=== PATIENT | female | born 1990 ===

== ENCOUNTER 2020-02-06 14:18 | Emergency (ER) | payer SELFPAY ==
[~2020-02-06] VITALS: Ht 154.9 cm; Wt 83.0 kg
[2020-02-06 14:27] VITALS: BP 118/77; TEMP 98.1
[2020-02-06 14:45] LABS: COLLECTION METHOD CLEAN CATCH
[2020-02-06 14:51] LABS: BASO % 0.3 % (0.0-2.0); EOS # 0.2 (0.0-0.7); EOS % 2.2 % (0-4.0); GRAN % 71.9 % (42.2-75.2); HEMOGLOBIN 12.8 g/dl (12.5-16.0); LYMPH # 2.2 (1.2-3.4); LYMPH % 19.9 % (20.0-51.0); MEAN CELL VOLUME 88 fl (80.0-100.0); MEAN CORPUSCULAR HEMOGLOBIN 31 pg (27.0-31.0); MEAN CORPUSCULAR HGB CONC 35 g/dl (33.0-37.0); MEAN PLATELET VOLUME 9.8 fl (7.4-10.4); MONO # 0.6 (0.1-0.6); MONO % 5.4 % (1.7-9.3); PLATELET COUNT 260 K/mm3 (130-400); RED BLOOD COUNT 4.16 M/mm3 (4.10-5.30); REDCELL DISTRIBUTION WIDTH-CV 12.4 % (11.5-14.5)
[2020-02-06 14:54] LABS: HEMATOCRIT 36.7 % (37.0-47.0)
[2020-02-06 14:58] LABS: MUCOUS Present /lpf; PH 6 (5-8); URINE APPEARANCE Turbid; URINE BACTERIA None Seen /hpf; URINE BILIRUBIN Negative (NEGATIVE); URINE BLOOD 3+ (NEGATIVE); URINE COLOR Red; URINE GLUCOSE Negative (NEGATIVE); URINE KETONE Negative (NEGATIVE); URINE LEUKOCYTE ESTERASE 2+ (NEGATIVE); URINE NITRATE Negative (NEGATIVE); URINE PROTEIN(semi-quant) 2+ (NEGATIVE); URINE RBC >50 /hpf; URINE UROBILINOGEN Negative (NEGATIVE)
[2020-02-06 15:01] LABS: ALBUMIN 4.5 gm/dL (3.5-5.0); BILIRUBIN,TOTAL 0.5 mg/dL (0.0-1.0); C-REACTIVE PROTEIN 0.6 mg/dL (0.0-0.9); CREATININE, serum 1.02 (0.52-1.25); POTASSIUM 3.7 mmol/L (3.4-5.0); TOTAL PROTEIN 7.7 gm/dL (6.4-8.2)
[2020-02-06] MEDS ORDERED: OMNICEF 300MG300 MG PO (16:03)
[2020-02-06] MEDS ORDERED: PYRIDIUM200 M1 PO (16:10)
[2020-02-06 16:26] VITALS: PULSE 92
== END 2020-02-06 16:29 | disposition home or self-care (01) ==
LOC: COL.ER 14:18
PROVIDERS: Emergency Medicine
DX: N39.0 Urinary tract infection, site not specified (principal); N12 Tubulo-interstitial nephritis, not specified as acute or chronic; Z32.02 Encounter for pregnancy test, result negative
CPT/HCPCS: J0696; J2405; J3010; J7030; Q9967

== ENCOUNTER 2022-01-17 20:56 | Emergency (ER) | payer SELFPAY ==
[~2022-01-17 20:56] MED LIST: OMNICEF 300MG300 MG PO; PYRIDIUM200 M1 PO
[2022-01-17 21:06] VITALS: TEMP 98.5
[2022-01-17] MEDS ORDERED: MEDROL 4MG DOSPA4 MG PO (22:25)
[2022-01-17 23:04] VITALS: BP 110/72; PULSE 73
== END 2022-01-17 23:05 | disposition home or self-care (01) ==
LOC: COL.ER 20:56
DX: S66.911A Strain of unspecified muscle, fascia and tendon at wrist and hand level, right hand, initial encounter (principal); X50.1XXA Overexertion from prolonged static or awkward postures, initial encounter

== ENCOUNTER 2023-02-07 12:49 | Emergency (ER) | payer SELFPAY ==
[~2023-02-07] VITALS: Ht 60 cm; Wt 87.8 kg
[~2023-02-07 12:49] MED LIST changes: +MEDROL 4MG DOSPA4 MG PO
[2023-02-07 13:31] LABS: COLLECTION METHOD CLEAN CATCH
[2023-02-07 13:59] LABS: PH 5.5 (5.0-8.5); URINE APPEARANCE Clear (CLEAR/HAZY); URINE COLOR Yellow (YELLOW); URINE GLUCOSE 2+ (NEGATIVE); URINE KETONE TRACE (NEGATIVE); URINE PROTEIN(semi-quant) Negative (NEGATIVE)
[2023-02-07 14:00] LABS: URINE BACTERIA None Seen /hpf (NONE SEEN); URINE BLOOD Negative (NEGATIVE); URINE NITRATE Negative (NEGATIVE); URINE RBC None Seen /hpf (0-2)
[2023-02-07 14:48] VITALS: BP 100/67; PULSE 72; TEMP 97.8
== END 2023-02-07 14:47 | disposition home or self-care (01) ==
LOC: COL.ER 12:49
PROVIDERS: Physician Assistant
DX: R10.2 Pelvic and perineal pain (principal); Z28.310 Unvaccinated for COVID-19

== ENCOUNTER 2023-02-27 22:36 | Emergency (ER) | payer SELFPAY ==
[~2023-02-27] VITALS: Ht 160 cm; Wt 88.6 kg
[2023-02-27 22:52] VITALS: BP 137/83; TEMP 98.5
[2023-02-27 23:17] LABS: COLLECTION METHOD CLEAN CATCH
[2023-02-27 23:28] LABS: URINE APPEARANCE Clear (CLEAR/HAZY); URINE BLOOD TRACE-LYSED (NEGATIVE); URINE COLOR Yellow (YELLOW); URINE GLUCOSE 3+ (NEGATIVE); URINE KETONE TRACE (NEGATIVE); URINE NITRATE Negative (NEGATIVE); URINE PROTEIN(semi-quant) Negative (NEGATIVE); URINE UROBILINOGEN 0.2 E.U/dL (0.2-1.0)
[2023-02-27 23:35] LABS: BUDDING YEAST Present (NOT PRESENT); MUCOUS Present (NOT PRESENT); URINE BACTERIA Rare /hpf (NONE SEEN)
[2023-02-28] MEDS ORDERED: DIFLUCAN150 MG PO (00:32)
[2023-02-28 00:42] VITALS: PULSE 70
== END 2023-02-28 00:40 | disposition home or self-care (01) ==
LOC: COL.ER 22:36
PROVIDERS: Nurse Practitioner Primary Care
DX: B37.31 Acute candidiasis of vulva and vagina (principal)

== ENCOUNTER 2023-05-02 07:55 | Emergency (ER) | payer SELFPAY ==
[~2023-05-02] VITALS: Ht 160 cm; Wt 84.1 kg
[~2023-05-02 07:55] MED LIST changes: +DIFLUCAN150 MG PO
[2023-05-02 08:03] VITALS: BP 118/83; TEMP 98.5
[2023-05-02] MEDS ORDERED: NAPROSYN500 MG PO (08:57)
[2023-05-02 09:05] VITALS: PULSE 86
== END 2023-05-02 09:05 | disposition home or self-care (01) ==
LOC: COL.ER 07:55
DX: B37.31 Acute candidiasis of vulva and vagina (principal); T49.0X5A Adverse effect of local antifungal, anti-infective and anti-inflammatory drugs, initial encounter; E11.9 Type 2 diabetes mellitus without complications; Z79.84 Long term (current) use of oral hypoglycemic drugs

== ENCOUNTER 2023-11-07 13:02 | Emergency (ER) | payer SELFPAY ==
[~2023-11-07] VITALS: Wt 84.1 kg
[~2023-11-07 13:02] MED LIST changes: +NAPROSYN500 MG PO
[2023-11-07] MEDS ORDERED: AMOXICILLIN 8751 TAB PO (15:35)
[2023-11-07] MEDS ORDERED: Amoxicillin/Clavulanate K+ 875/125 MG TAB PO ONE (15:45)
[2023-11-07 15:49] VITALS: BP 127/70; PULSE 66; TEMP 97.7
== END 2023-11-07 15:49 | disposition home or self-care (01) ==
LOC: COL.ER 13:02
DX: K11.20 Sialoadenitis, unspecified (principal)